=== PATIENT | female | born 1970 | race Caucasian/White ===

== ENCOUNTER 2016-10-06 15:32 | Observation (INO) | payer SELFPAY ==
[~2016-10-06 15:32] MED LIST: ALBUTEROL SULF8.5 G1 IH; ALBUTEROL SULF8.5 GM IH; AZITHROMYCIN250 MG PO; BACTRIM DS TAB1 EAC1 PO; BENADRYL25 MG PO; CLARITIN10 M6 PO; COMBIVENT1 PUFF INH; LEVAQUIN750 MG PO; MUCINEX DM TABL1 BOX PO; PEPCID20 MG PO; PREDNISONE20 MG PO; ZYVOX600 MG PO
[2016-10-06 16:23] LABS: BASO % 0.5 % (0-2); BASO ABSOLUTE COUNT 0.1 tho/cmm (0.0-0.2); EOS % 1.3 % (0-7); EOSINOPHIL ABSOLUTE COUNT 0.1 tho/cmm (0.0-0.7); HCT-HEMATOCRIT 45.6 % (34.0-49.0); HGB-HEMOGLOBIN 15.6 gm/dl (12.0-15.5); IMMATURE GRANULOCYTES ABSOLUTE 0.02 tho/cmm (0-0.03); IMMATURE GRANULOCYTES PERCENT 0.2 % (0-0.3); LYMPH % 23.7 % (20-45); LYMPH ABSOLUTE COUNT 2.5 tho/cmm (0.8-4.5); MCH (MEAN CORPUSCULAR HGB) 28.9 pg (28.0-32.0); MCHC MEAN CORPUSCULAR HGB CONC 34.2 % (32.0-36.0); MCV (MEAN CELL VOLUME) 84.6 fl (82.0-96.0); MEAN PLATELET VOLUME 10.3 cmc (9.4-12.4); MONOCYTE ABSOLUTE COUNT 0.6 tho/cmm (0.0-1.2); NEUTROPHIL ABSOLUTE COUNT 7.3 tho/cmm (1.6-8.0); NEUTROPHIL-AUTOMATED 7.3 tho/cmm (1.6-8.0); NEUTROPHILS % 68.3 % (40-80); PLATELET COUNT 269 tho/cmm (150-450); RED BLOOD COUNT 5.39 mil/cmm (4.00-5.20); RED CELL DISTRIBUTION WIDTH 14.1 % (12.4-16.4); WHITE BLOOD COUNT 10.6 tho/cmm (4.0-10.0)
[2016-10-06 16:40] LABS: ANION GAP 12 mmol/L (0-20); BLOOD UREA NITROGEN 8 mg/dl (6-24); CALCIUM 8.7 mg/dl (8.5-10.5); CARBON DIOXIDE-VENOUS 23 mmol/L (22-32); CHLORIDE 106 mmol/l (96-110); CREATININE 0.73 mg/dl (0.50-1.10); GLUCOSE 140 mg/dL (70-110); POTASSIUM 3.4 mmol/L (3.7-5.1); SODIUM 138 mmol/L (135-145); eGFR VALUE FOR BLACK >90 mL/Min
[2016-10-06 19:45] LABS: PROTHROMBIN TIME 11.1 SECONDS (9.0-13.6)
[2016-10-06 20:44] LABS: MAGNESIUM 2.4 mg/dl (1.8-2.6)
[2016-10-07 04:11] LABS: ANION GAP 13 mmol/L (0-20); BLOOD UREA NITROGEN 9 mg/dl (6-24); CALCIUM 8.5 mg/dl (8.5-10.5); CARBON DIOXIDE-VENOUS 22 mmol/L (22-32); CHLORIDE 109 mmol/l (96-110); CHOLESTEROL 185 mg/dl (120-200); CREATININE 0.56 mg/dl (0.50-1.10); GLUCOSE 87 mg/dL (70-110); HDL CHOLESTEROL 37 mg/dl (40-60); LDL CHOLESTEROL 105 mg/dl (0-99); POTASSIUM 4.2 mmol/L (3.7-5.1); SODIUM 140 mmol/L (135-145); VLDL 43 mg/dl (0-30); eGFR VALUE FOR BLACK >90 mL/Min
[2016-10-07 04:29] LABS: TRIGLYCERIDES 215 mg/dl (<149)
[2016-10-07] MEDS ORDERED: PRILOSEC OTC20 M1 PO (15:53)
== END 2016-10-07 20:10 ==
LOC: EDMED 15:32 → EMR2 17:23 → PCUB 18:25
PROVIDERS: Emergency Medicine; ADMIT Internal Medicine Cardiovascular Disease
PROC: 4A023N7 Measurement of Cardiac Sampling and Pressure, Left Heart, Percutaneous Approach (ICD-10-PCS; principal; 2016-10-07)
PROC: B2111ZZ Fluoroscopy of Multiple Coronary Arteries using Low Osmolar Contrast (ICD-10-PCS; 2016-10-07)
DX: I20.0 Unstable angina (principal); F17.210 Nicotine dependence, cigarettes, uncomplicated; R94.31 Abnormal electrocardiogram [ECG] [EKG]; Z79.899 Other long term (current) drug therapy; Z88.0 Allergy status to penicillin; Z88.1 Allergy status to other antibiotic agents; Z82.49 Family history of ischemic heart disease and other diseases of the circulatory system
CPT/HCPCS: C1894; C8929; G0378; J1644; J2250; J3010; Q9967